=== PATIENT | male | born 1945 | race Two or more races ===

== ENCOUNTER 2024-06-13 09:25 | Inpatient (IN) | payer OTHER ==
[2024-06-13 11:26] LABS: HEMATOCRIT 48.1 % (35.4-49); HEMOGLOBIN 15.4 GM/dL (11.7-16.9); MCH 29.6 pg (25.7-33.7); MEAN CELL VOLUME 92.4 fl (80-96); MEAN PLT VOLUME 9.9 fl (7.5-11.1); PLATELET COUNT 261 10^3/uL (134-434); RDW 13.8 % (11.9-15.9); WHITE BLOOD COUNT 13.5 K/mm3 (4.0-10.0)
[2024-06-13 11:45] LABS: POTASSIUM 4.5 mmol/L (3.5-5.1)
[2024-06-13] MEDS: SODIUM CHLORIDE 0.9% 500 ML INFUS.BAG IV ONE (11:45)
[2024-06-13 11:47] LABS: CALCIUM 9.2 mg/dL (8.5-10.1)
[2024-06-13 11:48] LABS: BLOOD UREA NITROGEN 22.2 mg/dL (7-18); MAGNESIUM 1.9 mg/dL (1.8-2.4)
[2024-06-13 11:51] LABS: CREATININE 1.4 mg/dL (0.55-1.3)
[2024-06-13 11:52] LABS: BILIRUBIN,TOTAL 1.2 mg/dL (0.2-1); TOT PROT 7.6 g/dl (6.4-8.2)
[2024-06-13 12:09] LABS: ALBUMIN 3.6 g/dl (3.4-5.0)
[2024-06-13 13:15] LABS: ANISOCYTOSIS 0; HELMET CELLS 0; HOWELL-JOLLY BODIES 0; MACROCYTOSIS 0; OVALOCYTE 0; ROULEAU 0; SICKELED CELLS 0; TARGET CELLS 0; TEAR DROP CELLS 0; TOXIC GRANULATION 0
[2024-06-13 14:28] LABS: PH,URINE 5.5 (5.0-8.0); URINE APPEARANCE Clear; URINE BILIRUBIN 1+ (NEGATIVE); URINE COLOR Yellow; URINE GLUCOSE (UA) Negative (NEGATIVE); URINE KETONE Trace (NEGATIVE); URINE LEUK ESTERASE Negative (NEGATIVE); URINE NITRITE Negative (NEGATIVE); URINE PROTEIN 2+ (NEGATIVE); URINE UROBILINOGEN 0.2 mg/dL (0.2-1.0)
[2024-06-13 14:49] LABS: URINE RBC 24.8 /uL (0-23.9)
[2024-06-13 14:50] LABS: EPI CELLS 86.2 /uL (0-25.1); HYALINE CASTS 26.61 /uL (0-3.1); URINE BACTERIA 7.5 /uL (0-1359); URINE WBC 153 /uL (0-25.8)
[2024-06-13] MEDS ORDERED: ACETAMINOPHEN INJECTION 100 ML ONE (15:21)
[2024-06-13] MEDS: ACETAMINOPHEN 1000 MG/100 ML BAG IVPB ONE (15:26)
[2024-06-13] MEDS: LACTATED RINGERS SOLUTION 1,000 ML/1,000 ML INFUS.BAG IV SCH (22:17)
[2024-06-13] MEDS: HEPARIN NA (PORCINE) 5,000 UNITS/ML 1ML VIAL SQ SCH (22:18)
[2024-06-13] MEDS: INSULIN (NOVOLOG) ASPART 100 UNITS/ML 10ML VIAL SQ SCH (22:28)
[2024-06-14] MEDS: ACETAMINOPHEN 500 MG TABLET (FP) PO ONE (02:49)
[2024-06-14 03:19] VITALS: RESP 18
[2024-06-14 03:45] VITALS: BMI 36.6
[2024-06-14 09:09] LABS: BASO % 0.4 % (0-2.0); EOS % 0.7 % (0-4.5); HEMATOCRIT 44.7 % (35.4-49); HEMOGLOBIN 14.5 GM/dL (11.7-16.9); LYMPH % 17.9 % (8-40); MCH 29.9 pg (25.7-33.7); MCHC 32.4 g/dl (32.0-35.9); MEAN CELL VOLUME 92.2 fl (80-96); MEAN PLT VOLUME 9.9 fl (7.5-11.1); MONO % 13.5 % (3.8-10.2); NEUT % 67.5 % (42.8-82.8); PLATELET COUNT 202 10^3/uL (134-434); RBC 4.84 M/mm3 (4.00-5.60); RDW 13.9 % (11.9-15.9); WHITE BLOOD COUNT 5.9 K/mm3 (4.0-10.0)
[2024-06-14 09:57] LABS: BLOOD UREA NITROGEN 24.9 mg/dL (7-18)
[2024-06-14 09:58] LABS: CALCIUM 8.3 mg/dL (8.5-10.1); MAGNESIUM 1.9 mg/dL (1.8-2.4)
[2024-06-14 10:00] LABS: ALBUMIN 3.1 g/dl (3.4-5.0)
[2024-06-14 10:01] LABS: TOT PROT 6.7 g/dl (6.4-8.2)
[2024-06-14 10:03] LABS: CREATININE 0.9 mg/dL (0.55-1.3)
[2024-06-14] MEDS: ASPIRIN 81 MG CHEWABLE TABLETS PO SCH (10:08)
[2024-06-14 10:13] LABS: BILIRUBIN,TOTAL 0.5 mg/dL (0.2-1)
[2024-06-14] MEDS: LOPERAMIDE HCL 2 MG CAPSULE PO ONE (16:33)
[2024-06-14] MEDS: LACTATED RINGERS SOLUTION 1,000 ML/1,000 ML INFUS.BAG IV SCH (17:12)
[2024-06-15 02:56] VITALS: BP 148/84; PULSE 89; TEMP 97.6
[2024-06-15] MEDS: INSULIN ASPART SLIDING SCALE (NOVOLOG) 1 VIAL SQ SCH (06:20)
[2024-06-15 08:36] LABS: BASO % 0.1 % (0-2.0); EOS % 0.8 % (0-4.5); HEMATOCRIT 45.1 % (35.4-49); HEMOGLOBIN 15.2 GM/dL (11.7-16.9); LYMPH % 21.1 % (8-40); MCH 30.2 pg (25.7-33.7); MCHC 33.7 g/dl (32.0-35.9); MEAN CELL VOLUME 89.6 fl (80-96); MEAN PLT VOLUME 9.9 fl (7.5-11.1); MONO % 11.7 % (3.8-10.2); NEUT % 66.3 % (42.8-82.8); PLATELET COUNT 247 10^3/uL (134-434); RBC 5.04 M/mm3 (4.00-5.60); RDW 14.1 % (11.9-15.9); WHITE BLOOD COUNT 8.1 K/mm3 (4.0-10.0)
[2024-06-15 09:21] LABS: POTASSIUM 4.1 mmol/L (3.5-5.1)
[2024-06-15 09:31] LABS: CALCIUM 8.7 mg/dL (8.5-10.1)
[2024-06-15 09:32] LABS: ALBUMIN 3.1 g/dl (3.4-5.0); BLOOD UREA NITROGEN 23.6 mg/dL (7-18); MAGNESIUM 2.1 mg/dL (1.8-2.4)
[2024-06-15 09:35] LABS: CREATININE 0.8 mg/dL (0.55-1.3)
[2024-06-15 09:36] LABS: BILIRUBIN,TOTAL 0.4 mg/dL (0.2-1)
== END 2024-06-15 14:34 | disposition home or self-care (01) | DRG 683 ==
LOC: JER 09:25 → JERBED 16:46 → OBSVTOIN 17:24 → J6S 20:56
PROVIDERS: ADMIT Internal Medicine; ATTEND Internal Medicine
DX: N17.9 Acute kidney failure, unspecified (principal); I69.351 Hemiplegia and hemiparesis following cerebral infarction affecting right dominant side; I10 Essential (primary) hypertension; E11.9 Type 2 diabetes mellitus without complications; F32.A Depression, unspecified; Z68.36 Body mass index [BMI] 36.0-36.9, adult; E78.5 Hyperlipidemia, unspecified; B34.9 Viral infection, unspecified; E86.0 Dehydration; D72.829 Elevated white blood cell count, unspecified; Z99.3 Dependence on wheelchair; N40.0 Benign prostatic hyperplasia without lower urinary tract symptoms
CPT/HCPCS: 0241U-QW; 36415; 70450-TC; 71045-TC-FY; 80053; 81003; 82962; 83735; 84484; 85025; 87045; 87046; 87086; 93005; 93010; 97162-GP; 99285-25; G0378; J0131; J1644